=== PATIENT | male | born 1965 | race Caucasian/White ===

== ENCOUNTER 2020-01-28 07:52 | Outpatient (CLI) | payer OTHER | END 2020-01-28 08:00 | disposition home or self-care (01) | LOC: SONOGRAMA 07:52 | DX: E04.2 Nontoxic multinodular goiter (principal) ==

== ENCOUNTER 2020-09-01 08:07 | Outpatient (CLI) | payer OTHER | END 2020-09-01 08:19 | disposition home or self-care (01) | LOC: SONOGRAMA 08:07 | PROVIDERS: ATTEND Pathology Anatomic Pathology & Clinical Pathology | DX: E04.1 Nontoxic single thyroid nodule (principal) ==